=== PATIENT | female | born 1940 | race Caucasian/White ===

== ENCOUNTER → 2022-07-03 12:11 | Outpatient (CLI) | payer MEDICARE, SELFPAY ==
--- NOTE | ~2022-07-03 | XR_ITS ---
XR chest 2V INDICATION: Shortness of breath TECHNIQUE: 2 view chest. FINDINGS: No prior studies for comparison. There is mild bilateral interstitial prominence and peribronchial cuffing. There is no focal consoli dation, pleural effusion, or pneumothorax. The cardiomediastinal silhouette is enlarged. IMPRESSION: 1. Findings most consistent with bronchiolitis versus an atypical or viral pneumonia. 2: Cardiomegaly. Reviewed, dictated and finalized at location B. ING MACHINE OPERATOR IMPRESSION: 1. Findings most consistent with bronchiolitis versus an atypical or viral pne umonia. 2: Cardiomegaly.
== END ==
PROVIDERS: PCP Clinical Nurse Specialist; Visit Provider Clinical Nurse Specialist
DX: R06.02 Shortness of breath (principal); R05.9 Cough, unspecified; I51.7 Cardiomegaly
CPT/HCPCS: 71046

== ENCOUNTER → 2022-09-05 15:27 | Outpatient (CLI) | payer MEDICARE, SELFPAY ==
--- NOTE | ~2022-09-05 | XR_ITS ---
EXAMINATION: XR chest 2V Exam Date/Time: 09/05/2022 15:30 FUR DRY CLEANER HISTORY: cough sob wheezing Comparison: 07/03/2022. RESULT: Lines, tubes, and devices: None. Lungs and pleura: Streaky perihilar opacities with cuffing. Senescent change. Cardiomediastinal silhouette: Stable cardiomegaly. Other: No acute osseous or upper abdominal finding. IMPRESSION: Pulmonary opacities may represent respiratory bronchiolitis or interstitial edema depending on the cl inical context. Reviewed, dictated and finalized at location K. DRY CLEANER IMPRESSION: Pulmonary opacities may represent respiratory bronchiolitis or interstitial amaya ma depending on the clinical context.
== END ==
PROVIDERS: PCP Clinical Nurse Specialist; Visit Provider Clinical Nurse Specialist
DX: R05.9 Cough, unspecified (principal); R06.2 Wheezing; R06.02 Shortness of breath
CPT/HCPCS: 71046